=== PATIENT | male | born 1960 | race Caucasian/White ===

== ENCOUNTER 2016-07-21 13:37 | Inpatient (IN) | payer MEDICARE ==
[~2016-07-21 13:37] MED LIST: CEPH500 PO; CHLO473L2 TP; QUET100T PO; SULF-168 PO
[2016-07-21 17:07] VITALS: BP 121/78
[2016-07-21] MEDS ORDERED: ZOLPIDEM TARTRATE 10 MG TABLET PO PRN (17:15)
[2016-07-21] MEDS ORDERED: QUEtiapine FUMARATE 100 MG TABLET PO PRN (17:15)
[2016-07-21] MEDS: QUEtiapine FUMARATE 100 MG TABLET PO SCH (17:44)
[2016-07-21 18:04] VITALS: BP 137/77
[2016-07-21] MEDS ORDERED: INFLUENZA VIRUS VACCINE QVS 2016-17 (3YR+)/PF 60 MCG/0.5 ML SYRINGE IM ONE (19:00)
[2016-07-22 08:10] VITALS: BP 102/68
[2016-07-22 08:31] LABS: BASOPHILS % (AUTO) 0.5 % (0.0-2.0); EOSINOPHILS % (AUTO) 1.3 % (1.0-6.0); HEMATOCRIT 43.7 % (41-53); HEMOGLOBIN 14.4 g/dL (13.5-17.5); LYMPHOCYTES % (AUTO) 40.9 % (22.0-44.0); MEAN CORPUSCULAR HEMOGLOBIN 29.9 pg (26.0-34.0); MEAN CORPUSCULAR VOLUME 90 fL (80-100); MONOCYTES # (AUTO) 0.4 K/uL (0.1-1.0); MONOCYTES % (AUTO) 8.8 % (2.0-9.0); NEUTROPHILS # (AUTO) 2.4 K/uL (1.8-7.7); NEUTROPHILS % (AUTO) 48.5 % (40.0-70.0); PLATELET COUNT (AUTO) 153 K/uL (150-450); RED BLOOD CELL COUNT(AUTO) 4.83 MIL/uL (4.50-5.90)
[2016-07-22] MEDS: QUEtiapine FUMARATE 100 MG TABLET PO SCH ×2 (08:34→16:31)
[2016-07-22 08:50] LABS: ALANINE AMINOTRANSFERASE 21 U/L (12-78); ALBUMIN 3.7 g/dL (3.4-5.0); ANION GAP 7 mmol/L (8-16); ASPARTATE AMINOTRANSFERASE 16 U/L (15-37); BILIRUBIN,TOTAL 0.6 mg/dL (0.1-1.0); CALCIUM, TOTAL 8.7 mg/dL (8.8-10.5); CARBON DIOXIDE 29 mmol/L (22-29); CHLORIDE 107 mmol/L (98-107); CREATININE 0.85 mg/dL (0.60-1.30); GLOMERULAR FILTR. RATE CALC > 60 mL/min (>60); SODIUM SERUM 143 mmol/L (136-145); TOTAL PROTEIN, SERUM 6.8 g/dL (6.4-8.2); UREA NITROGEN, BLOOD 19 mg/dL (7-18)
[2016-07-22 16:00] VITALS: BP 117/63
[2016-07-23 08:35] VITALS: BP 112/65
[2016-07-23] MEDS: QUEtiapine FUMARATE 100 MG TABLET PO SCH ×2 (08:38→17:00)
[2016-07-23 16:45] VITALS: BP 111/62
[2016-07-24] MEDS: QUEtiapine FUMARATE 100 MG TABLET PO SCH ×2 (08:24→16:28)
[2016-07-24 08:36] VITALS: BP 109/67
[2016-07-24 16:24] VITALS: BP 116/66
[2016-07-25 06:39] VITALS: BP 105/69
[2016-07-25 08:08] VITALS: BP 97/55
[2016-07-25] MEDS: QUEtiapine FUMARATE 100 MG TABLET PO SCH ×2 (08:47→16:15)
[2016-07-25 16:17] VITALS: BP 131/71
[2016-07-26 08:08] VITALS: BP 122/60
[2016-07-26] MEDS: QUEtiapine FUMARATE 100 MG TABLET PO SCH ×2 (09:00→16:31)
[2016-07-26 16:00] VITALS: BP 127/79
[2016-07-27] MEDS: QUEtiapine FUMARATE 100 MG TABLET PO SCH (08:44)
[2016-07-27] MEDS: QUEtiapine FUMARATE 200 MG TABLET PO SCH ×3 (10:45→17:25)
[2016-07-27] MEDS ORDERED: HALOPERIDOL LACTATE 5 MG/ML VIAL IM PRN (10:45)
[2016-07-28 08:28] VITALS: BP 114/68
[2016-07-28] MEDS: QUEtiapine FUMARATE 200 MG TABLET PO SCH ×2 (09:09→16:21)
[2016-07-28 16:00] VITALS: BP 121/65
[2016-07-29] MEDS: QUEtiapine FUMARATE 200 MG TABLET PO SCH ×2 (08:03→16:42)
[2016-07-29 08:23] VITALS: BP 109/56
[2016-07-29 16:14] VITALS: BP 127/68
[2016-07-30] MEDS: QUEtiapine FUMARATE 200 MG TABLET PO SCH ×2 (08:43→17:23)
[2016-07-30 16:00] VITALS: BP 116/69
[2016-07-31] MEDS: QUEtiapine FUMARATE 200 MG TABLET PO SCH ×2 (08:26→16:45)
[2016-07-31 16:00] VITALS: BP 110/65
[2016-08-01] MEDS: QUEtiapine FUMARATE 200 MG TABLET PO SCH ×2 (08:48→16:13)
[2016-08-02 08:40] VITALS: BP 126/70
[2016-08-02] MEDS: QUEtiapine FUMARATE 200 MG TABLET PO SCH (09:04)
[2016-08-02 16:00] VITALS: BP 116/69
[2016-08-02] MEDS: QUEtiapine FUMARATE 300 MG TABLET PO SCH (16:58)
[2016-08-03 08:58] VITALS: BP 112/66
[2016-08-03] MEDS: QUEtiapine FUMARATE 300 MG TABLET PO SCH ×2 (09:22→16:48)
[2016-08-03 16:13] VITALS: BP 114/67
[2016-08-04 08:00] VITALS: BP 116/71
[2016-08-04] MEDS: QUEtiapine FUMARATE 300 MG TABLET PO SCH ×2 (08:57→17:01)
[2016-08-04 16:10] VITALS: BP 106/66
[2016-08-05 08:30] VITALS: BP 122/69
[2016-08-05] MEDS: QUEtiapine FUMARATE 300 MG TABLET PO SCH ×2 (08:53→16:16)
[2016-08-05] MEDS: LORazepam 2 MG TABLET PO PRN (08:53)
[2016-08-05 16:00] VITALS: BP 105/65
[2016-08-06 08:25] VITALS: BP 113/67
[2016-08-06] MEDS: QUEtiapine FUMARATE 300 MG TABLET PO SCH ×2 (08:50→16:33)
[2016-08-06 16:03] VITALS: BP 111/69
[2016-08-07 08:32] VITALS: BP 110/71
[2016-08-07] MEDS: QUEtiapine FUMARATE 300 MG TABLET PO SCH ×2 (08:52→17:00)
[2016-08-07 16:00] VITALS: BP 108/70
[2016-08-08 07:02] VITALS: BP 107/55
[2016-08-08 08:23] VITALS: BP 109/66
[2016-08-08] MEDS: QUEtiapine FUMARATE 300 MG TABLET PO SCH ×2 (09:22→17:12)
[2016-08-08 16:12] VITALS: BP 113/67
[2016-08-09 07:18] VITALS: BP 113/72
[2016-08-09 08:30] VITALS: BP 109/62
[2016-08-09] MEDS: LORazepam 2 MG TABLET PO PRN (08:38)
[2016-08-09] MEDS: QUEtiapine FUMARATE 300 MG TABLET PO SCH (08:39)
[2016-08-09 16:08] VITALS: BP 115/66
[2016-08-09] MEDS: QUEtiapine FUMARATE 200 MG TABLET PO SCH (17:01)
[2016-08-10 07:00] VITALS: BP 105/65
[2016-08-10] MEDS: QUEtiapine FUMARATE 200 MG TABLET PO SCH ×2 (08:48→16:48)
[2016-08-10] MEDS: LORazepam 2 MG TABLET PO PRN (08:48)
[2016-08-10 09:08] VITALS: BP 120/64
[2016-08-10 16:00] VITALS: BP 108/65
[2016-08-11 06:47] VITALS: BP 110/66
[2016-08-11 08:12] VITALS: BP 104/67
[2016-08-11] MEDS: QUEtiapine FUMARATE 200 MG TABLET PO SCH ×2 (08:36→17:08)
[2016-08-11 16:12] VITALS: BP 112/67
[2016-08-12 06:42] VITALS: BP 111/67
[2016-08-12] MEDS: QUEtiapine FUMARATE 200 MG TABLET PO SCH ×2 (08:20→17:01)
[2016-08-12 08:38] VITALS: BP 106/62
[2016-08-12 16:00] VITALS: BP 115/67
[2016-08-13 07:09] VITALS: BP 114/60
[2016-08-13 08:22] VITALS: BP 106/66
[2016-08-13] MEDS: BACITRACIN 28.4 GM OINTMENT TP SCH ×2 (08:42→17:27)
[2016-08-13] MEDS: QUEtiapine FUMARATE 200 MG TABLET PO SCH ×2 (08:42→17:27)
[2016-08-13 16:00] VITALS: BP 112/65
[2016-08-14 06:24] VITALS: BP 109/62
[2016-08-14 08:31] VITALS: BP 109/67
[2016-08-14] MEDS: BACITRACIN 28.4 GM OINTMENT TP SCH ×2 (09:12→16:14)
[2016-08-14] MEDS: QUEtiapine FUMARATE 200 MG TABLET PO SCH ×2 (09:13→16:14)
[2016-08-14 16:09] VITALS: BP 110/78
[2016-08-15 06:30] VITALS: BP_SYST 109; BP_SYST 110; BP_DIAS 60; BP_DIAS 67
[2016-08-15 08:08] VITALS: BP 122/69
[2016-08-15] MEDS: QUEtiapine FUMARATE 200 MG TABLET PO SCH ×2 (09:05→16:48)
[2016-08-15] MEDS: BACITRACIN 28.4 GM OINTMENT TP SCH ×2 (09:05→17:42)
[2016-08-15 16:15] VITALS: BP 104/66
[2016-08-16 00:35] VITALS: BP 102/64
[2016-08-16 08:20] VITALS: BP 102/66
[2016-08-16] MEDS: QUEtiapine FUMARATE 200 MG TABLET PO SCH ×2 (08:20→16:59)
[2016-08-16] MEDS: BACITRACIN 28.4 GM OINTMENT TP SCH ×2 (09:48→16:59)
[2016-08-16 17:38] VITALS: BP 118/75
[2016-08-17 06:05] VITALS: BP 105/59
[2016-08-17 08:57] VITALS: BP 100/60
[2016-08-17] MEDS: QUEtiapine FUMARATE 200 MG TABLET PO SCH ×2 (09:38→16:56)
[2016-08-17] MEDS: BACITRACIN 28.4 GM OINTMENT TP SCH ×2 (09:38→17:16)
[2016-08-17 16:20] VITALS: BP 132/73
[2016-08-18 06:26] VITALS: BP 107/65
[2016-08-18 08:44] VITALS: BP 104/60
[2016-08-18] MEDS: QUEtiapine FUMARATE 200 MG TABLET PO SCH ×2 (08:44→16:19)
[2016-08-18] MEDS: BACITRACIN 28.4 GM OINTMENT TP SCH ×2 (08:45→16:20)
[2016-08-18 16:00] VITALS: BP 108/69
[2016-08-19 00:05] VITALS: BP 107/69
[2016-08-19 07:07] VITALS: BP 126/73
[2016-08-19 09:12] VITALS: BP 123/73
[2016-08-19] MEDS: QUEtiapine FUMARATE 200 MG TABLET PO SCH ×2 (09:19→16:28)
[2016-08-19] MEDS: BACITRACIN 28.4 GM OINTMENT TP SCH ×2 (09:19→16:28)
[2016-08-19 16:00] VITALS: BP 116/76
[2016-08-20 01:12] VITALS: BP 103/62
[2016-08-20 08:24] VITALS: BP 126/66
[2016-08-20] MEDS: QUEtiapine FUMARATE 200 MG TABLET PO SCH ×2 (09:07→16:11)
[2016-08-20] MEDS: BACITRACIN 28.4 GM OINTMENT TP SCH ×2 (09:07→17:06)
[2016-08-20 16:11] VITALS: BP 114/66
[2016-08-21 00:53] VITALS: BP 105/65
[2016-08-21 08:40] VITALS: BP 116/73
[2016-08-21] MEDS: QUEtiapine FUMARATE 200 MG TABLET PO SCH ×2 (08:52→16:53)
[2016-08-21] MEDS: BACITRACIN 28.4 GM OINTMENT TP SCH ×2 (08:55→16:53)
[2016-08-21 16:16] VITALS: BP 108/68
[2016-08-22 01:55] VITALS: BP 109/63
[2016-08-22 08:34] VITALS: BP 103/60
[2016-08-22] MEDS: QUEtiapine FUMARATE 200 MG TABLET PO SCH ×2 (10:02→17:37)
[2016-08-22] MEDS: BACITRACIN 28.4 GM OINTMENT TP SCH ×2 (10:02→17:37)
[2016-08-22 16:00] VITALS: BP 108/67
[2016-08-23 00:20] VITALS: BP 187/65
[2016-08-23 08:31] VITALS: BP 100/60
[2016-08-23] MEDS: QUEtiapine FUMARATE 200 MG TABLET PO SCH ×2 (09:14→16:39)
[2016-08-23] MEDS: BACITRACIN 28.4 GM OINTMENT TP SCH ×2 (09:15→16:42)
[2016-08-23 16:00] VITALS: BP 101/70
[2016-08-24 00:25] VITALS: BP 103/61
[2016-08-24 08:12] VITALS: BP 92/54
[2016-08-24] MEDS: BACITRACIN 28.4 GM OINTMENT TP SCH ×2 (11:48→16:50)
[2016-08-24] MEDS: QUEtiapine FUMARATE 200 MG TABLET PO SCH ×2 (11:48→16:49)
[2016-08-24 12:49] VITALS: BP 114/76
[2016-08-24 17:09] VITALS: BP 107/67
[2016-08-25 04:01] VITALS: BP 100/70
[2016-08-25 08:42] VITALS: BP 100/57
[2016-08-25] MEDS: BACITRACIN 28.4 GM OINTMENT TP SCH (09:16)
[2016-08-25] MEDS: QUEtiapine FUMARATE 200 MG TABLET PO SCH (09:16)
[2016-08-25] MEDS ORDERED: QUET200T PO (10:41)
== END 2016-08-25 13:33 | disposition home or self-care (01) | DRG 885 ==
LOC: B3A 17:23 → EDSTATUS 17:40 → B2S 08-15 13:02
PROC: 3E0234Z Introduction of Serum, Toxoid and Vaccine into Muscle, Percutaneous Approach (ICD-10-PCS; principal; 2016-07-21)
DX: F25.1 Schizoaffective disorder, depressive type (principal); Z53.29 Procedure and treatment not carried out because of patient's decision for other reasons; F17.200 Nicotine dependence, unspecified, uncomplicated; D64.9 Anemia, unspecified; F22 Delusional disorders; Z79.899 Other long term (current) drug therapy; Z59.0 Homelessness; Z82.3 Family history of stroke; Z28.21 Immunization not carried out because of patient refusal
CPT/HCPCS: 87081; J1630